=== PATIENT | female | born 1945 | race Caucasian/White ===

== ENCOUNTER 2018-08-14 11:04 | Day surgery (SDC) | payer MEDICARE, OTHER ==
[~2018-08-14 11:04] MED LIST: Lactated Ringers 1,000 ML IV SCH
--- NOTE | 2018-08-14 12:04 | PCM.PREANE ---
Preanesthetic Assessment - Anesthesia/Transfusion/Family Hx Anesthesia History: Prior Anesthesia Without Reaction Family History of Anesthesia Reaction: No Transfusion History: No Prior Transfusion(s) Intubation History: Unknown - Review of Systems General: No Symptoms Pulmonary: No Symptoms Cardiovascular: No Symptoms Gastrointestinal: No Symptoms Neurological: No Symptoms Other: Reports: None - Physical Assessment NPO Status Date: 08/14/18 NPO Status Time: 07:00 Height: 5 ft 4 in Weight: 73.028 kg ASA Class: 2 Mental Status: Alert & Oriented x3 Dentition: Reports: Normal Dentition Thyro-Mental Finger Breadths: 3 Mouth Opening Finger Breadths: 3 ROM/Head Extension: Full Lungs: Clear to Auscultation Cardiovascular: Regular Rate - Allergies Allergies/Adverse Reactions: Allergies Allergy/AdvReac Type Severity Reaction Status Date / Time No Known Allergies Allergy Verified 08/12/18 11:40 - Blood Blood Available: No - Anesthesia Plan Pre-Op Medication Ordered: None - Acknowledgements Anesthesia Type Planned: MAC Pt an Appropriate Candidate for the Planned Anesthesia: Yes Alternatives and Risks of Anesthesia Discussed w Pt/Guardian: Yes Pt/Guardian Understands and Agrees with Anesthesia Plan: Yes PreAnesthesia Questionnaire HEENT History: Reports: Other (See Below) Other HEENT History: wears glasses Cardiovascular History: Reports: Hypertension Other Cardiovascular History: states blood pressure "runs a little high", does not take medication Gastrointestinal History: Reports: GERD, Hemorrhoids - Past Surgical History HEENT Surgical History: Reports: Tonsillectomy Female Surgical History: Reports: Breast Biopsy, Tubal Ligation - SUBSTANCE USE Smoking Status *Q: Never Smoker Recreational Drug Use History: No - HOME MEDS Home Medications: Home Meds Omeprazole 20 mg PO DAILY PRN 08/12/18 [History] - CURRENT (IN HOUSE) MEDS Current Meds: Current Medications Lactated Ringer's (Ringers, Lactated) 1,000 mls @ 125 mls/hr IV ASDIRECTED [facility]
[2018-08-14] MEDS ORDERED: Propofol 200 MG/20 ML SDV ONE (12:28)
[2018-08-14] MEDS ORDERED: Lidocaine 2% 5 ML SDV ONE (12:28)
[2018-08-14] MEDS ORDERED: Midazolam 1 MG/ML 2 ML SDV ONE (12:34)
[2018-08-14] MEDS ORDERED: fentaNYL 100 MCG/2 ML SDV ONE (12:35)
--- NOTE | 2018-08-14 13:26 | PCM.OPNOTE ---
- General Post-Op/Procedure Note Date of Surgery/Procedure: 08/14/18 Operative Procedure(s): egd w bx. colonoscopy Findings: see dict [id number] Pre Op Diagnosis: scrn colonoscopy and gerd Post-Op Diagnosis: Same Anesthesia Technique: Moderate Sedation Primary Surgeon: Erik Diaz Pathology: egd bx Complications: None Condition: Good
--- NOTE | 2018-08-14 13:29 | PCM.POSTAN ---
POST ANESTHESIA ASSESSMENT - MENTAL STATUS Mental Status: Alert, Oriented - RESPIRATORY Respiratory Status: Respiratory Rate WNL, Airway Patent, O2 Saturation Stable - CARDIOVASCULAR CV Status: Pulse Rate WNL, Blood Pressure Stable - PAIN Pain Score: 0 - POST OP HYDRATION Hydration Status: Adequate & Stable (VSS no anesthesia concerns)
--- NOTE | 2018-08-14 20:15 | OR ---
SURGEON: Erik Diaz MD DATE OF PROCEDURE: 08/14/2018 PREOPERATIVE DIAGNOSIS: Gastroesophageal reflux disease with screening colonoscopy. POSTOPERATIVE DIAGNOSIS: Gastroesophageal reflux disease with screening colonoscopy. PROCEDURE PERFORMED: EGD with biopsy and colonoscopy. DESCRIPTION OF PROCEDURE: EGD: The patient was taken to the endoscopy room, and with the FLOOR CLEANER, Diprivan was administered. A well-lubricated EGD scope was gently inserted through the oropharynx, down the esophagus, passing through the gastroesophageal junction, into the stomach. The mucosa was examined upon the passage. Any etiology will be noted. Once in the stomach, we continued to advance to the distal antrum, passed through the pylorus into the second portion of the duodenum. Again, the mucosa was examined for any abnormality and etiology. The scope was then retrieved back to the stomach and then retroflexed to look at the fundus of the stomach. If a biopsy was indicated, we will biopsy the antrum, body, and gastroesophageal junction. The air will be sucked out while the scope is retrieved to reduce the patient's discomfort. The patient tolerated the procedure well. There were no intraoperative complications. Dr. Diaz was present through the whole procedure. Prior to surgery, a time-out had been called, the patient identified, procedure identified and antibiotic administered. Colonoscopy: The patient was taken to the endoscopy room. A time out was called, patient identified, and procedure identified. Diprivan was then administrated. Patient went from awake to sleep, hearing doctor talking or door closing is normal. Perineum inspection and digital examination were then performed. A well-lubricated colonoscope was gently inserted through the rectum, advanced past the rectosigmoid junction, the descending colon, splenic flexure, transverse colon, hepatic flexure, ascending colon, arrived to the cecum. Cecum was identified as dictated in the finding. Then the scope was carefully withdrawn while attention was paid to the mucosal surface for any abnormality. Air will be sucked out during the scope withdrawal. At the rectum, retroflexed to examine any rectal diseases, fistula or hemorrhoids. Patient tolerated procedure well. There were no intraoperative complications, and Dr. Diaz was present throughout the whole procedure. EGD FINDIN. The patient is easily sedated with FLOOR CLEANER and Diprivan, patient is soundly snoring. 2. Oropharynx and proximal esophagus are free of disease. No stricture, inflammation, and distal esophagus at GE junction at 40 shows significant salmon color change consistent with a moderate GERD. Stomach rugae is normal in appearance and antrum is normal in appearance, and duodenum is grossly normal. Scope retrieved back to the stomach, retroflexed to look at the fundus of stomach, there is no hiatal hernia. Stomach rugae is normal in appearance and there is no bile, blood, food particle observed during the whole study. Biopsy done at antrum, body, and GE junction and sucked out the gas while scope pulling out. The patient has two tiny polyp at the greater curvature very high up of less than 1 mm, biopsied one of them, and throughout the whole study, there is no blood, bile, food particle observed. COLONOSCOPY FINDIN. The patient is easily sedated with FLOOR CLEANER and Diprivan, the patient is soundly snoring. 2. Bowel prep is average to above average, very little liquid stool, no semi- formed stool, but there are some bubbles and compromised study requiring a lot of irrigation. 3. Colon is rather straight forward. Cecum indicated by ileocecal fold, one- to-one indentation, and appendiceal orifice. Light emittance is not observed. Mucosa examined upon scope pulling out with some irrigation. The patient does not have diverticulosis, polyp, mass, growth, inflammation, stricture, ulceration, AV malformation, bleeding observed. The patient has some mild external hemorrhoids and has some mild internal hemorrhoids. The patient would benefit from repeat colonoscopy on as needed basis as the patient is 72 years old or if clinically indicated otherwise. JOAN / EMA /[id number]
== END 2018-08-14 13:55 | disposition home or self-care (01) ==
LOC: MW.SDS 11:04
PROVIDERS: ATTEND Surgery
DX: Z12.11 Encounter for screening for malignant neoplasm of colon (principal); K31.7 Polyp of stomach and duodenum; K21.0 Gastro-esophageal reflux disease with esophagitis; K64.4 Residual hemorrhoidal skin tags; K64.8 Other hemorrhoids; I10 Essential (primary) hypertension; Z80.0 Family history of malignant neoplasm of digestive organs
CPT/HCPCS: 43239; G0105; J2001; J2250; J2704; J3010; J7120; 88305; 88312